=== PATIENT | male | born 1950 | race African-American/Black ===

== ENCOUNTER 2019-06-09 11:15 | Inpatient (IN) | payer MEDICARE, MEDICAID ==
[~2019-06-09] VITALS: Ht 177.8 cm; Wt 104.3 kg
[2019-06-09] MEDS ORDERED: ONDANSETRON HCL 4MG/2ML INJ IV STA (12:34)
[2019-06-09] MEDS ORDERED: SODIUM CHLORIDE 0.9% 1,000 ML IV ONE (12:34)
[2019-06-09] MEDS ORDERED: MORPHINE SULFATE 4 MG/ML CPJ (NOT FOR IM USE) IV STA (12:34)
[2019-06-09 13:39] LABS: BASOPHILS % 0.8 % (0.0-2.0); EOSINOPHILS % 0.2 % (0.0-5.0); HEMATOCRIT. 39.2 % (42.0-52.0); HEMOGLOBIN. 12.7 g/dL (14.0-18.0); LYMPHOCYTES % 20.6 % (20.0-50.0); MEAN CORPUSCULAR HEMOGLOBIN 27.5 pg (28.0-32.0); MEAN PLATELET VOLUME 8.2 fl (7.4-10.4); MONOCYTES % 12.4 % (2.0-8.0); PLATELET 146 x1000/uL (130-400); RED BLOOD CELL COUNT 4.62 mill/uL (4.7-6.1)
[2019-06-09 13:44] LABS: CHLORIDE 101 mEq/L (98-107)
[2019-06-09] MEDS ORDERED: ASPIRIN 325MG EC TABLET PO ONE (14:30)
[2019-06-09] MEDS ORDERED: POTASSIUM CHLORIDE 20MEQ TABLET SR PO ONE (14:30)
[2019-06-09] MEDS ORDERED: ENOXAPARIN 40MG/0.4ML SYR SUBCUT SCH (16:30)
[2019-06-09] MEDS ORDERED: MAGNESIUM/ALUMINUM HYDROXIDE/SIMETHICONE 30ML UDC PO PRN (16:30)
[2019-06-09] MEDS ORDERED: KETOROLAC 15MG/ML VIAL IV PRN (16:30)
[2019-06-09] MEDS ORDERED: DOCUSATE SODIUM 100MG CAPSULE PO PRN (16:30)
[2019-06-09] MEDS ORDERED: NITROGLYCERIN 0.4MG TABLET SL SL PRN (16:30)
[2019-06-09] MEDS ORDERED: GUAIFENESIN 200MG/10ML SUGAR FREE UDC PO PRN (16:30)
[2019-06-09] MEDS ORDERED: ONDANSETRON HCL 4MG/2ML INJ IV PRN (16:30)
[2019-06-09] MEDS ORDERED: IPRATROPIUM/ALBUTEROL 0.5-3(2.5)MG/3ML NEB NEB PRN (16:30)
[2019-06-09] MEDS ORDERED: ACETAMINOPHEN 325MG TABLET PO PRN (16:30)
[2019-06-09] MEDS ORDERED: NA PHOS,M-B/NA PHOS,DI-BA ENEMA 118ML PR PRN (16:30)
[2019-06-09] MEDS ORDERED: HALOPERIDOL LACTATE 5MG/ML VIAL IM PRN (16:30)
[2019-06-09] MEDS ORDERED: DEXTROSE 50% WATER 50ML SYRINGE IV PRN (16:30)
[2019-06-09] MEDS ORDERED: TRAMADOL 50MG TABLET PO PRN (16:30)
[2019-06-09] MEDS: BLOOD SUGAR DIAGNOSTIC STRIP TEST SCH ×2 (17:00→21:59)
[2019-06-09] MEDS ORDERED: LEVOFLOXACIN 500MG PREMIX 100 ML IV SCH (17:30)
[2019-06-09 17:31] LABS: CLARITY URINE CLEAR (CLEAR); COLOR URINE YELLOW (YELLOW); KETONES URINE TRACE (NEGATIVE); LEUKOCYTE ESTERASE URINE 2+ (NEGATIVE); NITRITE URINE NEGATIVE (NEGATIVE); OCCULT BLOOD URINE NEGATIVE (NEGATIVE); PH URINE 7.5 (4.5-8.0); PROTEIN URINE TRACE (NEGATIVE); SPECIFIC GRAVITY URINE 1.016 (1.005-1.030)
[2019-06-09 17:43] LABS: *AMPHETAMINES SCREEN URINE NEGATIVE (NEGATIVE); *BARBITURATES SCREEN URINE NEGATIVE (NEGATIVE); *BENZODIAZEPINES SCREEN URINE NEGATIVE (NEGATIVE)
[2019-06-09 17:44] LABS: *COCAINE SCREEN URINE NEGATIVE (NEGATIVE); CANNABINOID URINE SCREEN NEGATIVE (NEGATIVE); METHADONE URINE SCREEN NEGATIVE (NEGATIVE); OPIATES URINE SCREEN NEGATIVE (NEGATIVE); PHENCYCLIDINE URINE SCREEN NEGATIVE (NEGATIVE)
[2019-06-09] MEDS: INSULIN LISPRO 100 UNITS/ML SUBCUT SCH ×2 (18:05→21:00)
[2019-06-09 18:12] LABS: D-DIMER 3.98 mg/L FEU (<0.50); INR 1.1; PARTIAL THROMBOPLASTIN TIME 34.1 sec (23.4-31.0); PROTHROMBIN TIME 11.4 sec (9.6-11.0)
[2019-06-09] MEDS: ENOXAPARIN 30MG/0.3ML SYR SUBCUT SCH (18:52)
[2019-06-09 20:30] VITALS: BP_SYST 167; BP_DIAS 75; BP_DIAS 85
[2019-06-09] MEDS ORDERED: IOHEXOL-350 100 ML BOTTLE ONE (21:17)
[2019-06-09] MEDS: METHYLPREDNISOLONE SOD SUCC 125 MG/2 ML VIAL IV SCH (21:58)
[2019-06-09] MEDS: GUAIFENESIN/DM 600MG/30MG ER TAB 12HR PO SCH (21:59)
[2019-06-09] MEDS: METOPROLOL TARTRATE 25MG TABLET PO SCH (21:59)
[2019-06-09] MEDS: FAMOTIDINE 20MG TABLET PO SCH (22:02)
[2019-06-09] MEDS: LISINOPRIL 20MG TABLET PO SCH (22:02)
[2019-06-09 23:13] LABS: CREATINE KINASE 172 IU/L (39-308)
[2019-06-09 23:14] LABS: CREATINE KINASE MB FRACTION 3.9 ng/mL (0.5-3.6)
[2019-06-10] VITALS: BP 173/80
[2019-06-10] MEDS: CLONIDINE 0.1MG TABLET PO PRN ×2 (01:27→18:04)
[2019-06-10] MEDS: IPRATROPIUM/ALBUTEROL 0.5-3(2.5)MG/3ML NEB HHN SCH ×6 (01:57→20:58)
[2019-06-10 04:00] VITALS: BP 154/71
[2019-06-10] MEDS: METHYLPREDNISOLONE SOD SUCC 125 MG/2 ML VIAL IV SCH ×3 (05:15→22:14)
[2019-06-10] MEDS: ENOXAPARIN 30MG/0.3ML SYR SUBCUT SCH ×2 (05:16→18:04)
[2019-06-10] MEDS: BLOOD SUGAR DIAGNOSTIC STRIP TEST SCH ×4 (07:47→21:00)
[2019-06-10 08:00] VITALS: BP_SYST 120; BP_SYST 176; BP_DIAS 60; BP_DIAS 74
[2019-06-10] MEDS: INSULIN LISPRO 100 UNITS/ML SUBCUT SCH ×4 (08:10→22:26)
[2019-06-10 08:43] LABS: CREATINE KINASE 137 IU/L (39-308)
[2019-06-10 08:45] LABS: CREATINE KINASE MB FRACTION 3.5 ng/mL (0.5-3.6)
[2019-06-10] MEDS: METOPROLOL TARTRATE 25MG TABLET PO SCH ×2 (08:58→22:13)
[2019-06-10] MEDS: GUAIFENESIN/DM 600MG/30MG ER TAB 12HR PO SCH ×2 (08:58→22:13)
[2019-06-10] MEDS: FAMOTIDINE 20MG TABLET PO SCH ×2 (08:58→22:13)
[2019-06-10] MEDS: LISINOPRIL 20MG TABLET PO SCH ×2 (08:59→22:13)
[2019-06-10] MEDS: ASPIRIN 325MG EC TABLET PO SCH (08:59)
[2019-06-10] MEDS ORDERED: INFLUENZA VIRUS VACCINE(AFLURIA) 0.5ML SYR IM ONE (09:00)
[2019-06-10] MEDS ORDERED: PNEUMOCOCCAL 23-VAL P-SAC VAC 0.5 ML IM ONE (09:00)
[2019-06-10 12:00] VITALS: BP 170/80
[2019-06-10] MEDS ORDERED: LEVOFLOXACIN 500MG PREMIX 100 ML IV SCH (14:00)
[2019-06-10 16:00] VITALS: BP 188/82
[2019-06-11] VITALS: BP 174/93
[2019-06-11] MEDS: IPRATROPIUM/ALBUTEROL 0.5-3(2.5)MG/3ML NEB HHN SCH ×6 (00:26→21:08)
[2019-06-11] MEDS: CLONIDINE 0.1MG TABLET PO PRN ×2 (01:17→08:47)
[2019-06-11 04:00] VITALS: BP 155/91
[2019-06-11] MEDS: METHYLPREDNISOLONE SOD SUCC 125 MG/2 ML VIAL IV SCH ×3 (07:02→23:38)
[2019-06-11] MEDS: ENOXAPARIN 30MG/0.3ML SYR SUBCUT SCH ×2 (07:02→18:50)
[2019-06-11] MEDS: BLOOD SUGAR DIAGNOSTIC STRIP TEST SCH ×4 (07:13→20:36)
[2019-06-11] MEDS: INSULIN LISPRO 100 UNITS/ML SUBCUT SCH ×4 (08:10→20:32)
[2019-06-11] MEDS: ASPIRIN 325MG EC TABLET PO SCH (08:41)
[2019-06-11] MEDS: GUAIFENESIN/DM 600MG/30MG ER TAB 12HR PO SCH ×2 (08:41→20:36)
[2019-06-11] MEDS: FAMOTIDINE 20MG TABLET PO SCH ×2 (08:42→20:29)
[2019-06-11] MEDS: LISINOPRIL 20MG TABLET PO SCH ×2 (08:42→20:29)
[2019-06-11] MEDS: METOPROLOL TARTRATE 25MG TABLET PO SCH ×2 (08:43→20:30)
[2019-06-11] MEDS: LEVOFLOXACIN 500MG PREMIX 100 ML IV SCH (10:38)
[2019-06-11] MEDS: AMLODIPINE 10MG TABLET PO SCH (10:39)
[2019-06-11 13:08] LABS: CHLORIDE 103 mEq/L (98-107)
[2019-06-11] MEDS: HALOPERIDOL LACTATE 5MG/ML VIAL IM PRN (20:28)
[2019-06-12] MEDS: IPRATROPIUM/ALBUTEROL 0.5-3(2.5)MG/3ML NEB HHN SCH ×5 (01:39→15:44)
[2019-06-12] MEDS: HALOPERIDOL LACTATE 5MG/ML VIAL IM PRN (01:58)
[2019-06-12 04:00] VITALS: BP 174/98
[2019-06-12] MEDS: METHYLPREDNISOLONE SOD SUCC 125 MG/2 ML VIAL IV SCH ×2 (05:15→15:07)
[2019-06-12] MEDS: ENOXAPARIN 30MG/0.3ML SYR SUBCUT SCH (05:16)
[2019-06-12] MEDS: BLOOD SUGAR DIAGNOSTIC STRIP TEST SCH ×2 (07:40→12:40)
[2019-06-12] MEDS ORDERED: LISINOPRIL 20MG TABLET PO NR (09:30)
[2019-06-12] MEDS: ASPIRIN 325MG EC TABLET PO SCH (09:31)
[2019-06-12] MEDS: GUAIFENESIN/DM 600MG/30MG ER TAB 12HR PO SCH (09:31)
[2019-06-12] MEDS: AMLODIPINE 10MG TABLET PO SCH (09:32)
[2019-06-12] MEDS: CLONIDINE 0.1MG TABLET PO PRN (09:32)
[2019-06-12] MEDS: LISINOPRIL 20MG TABLET PO SCH (09:32)
[2019-06-12] MEDS: METOPROLOL TARTRATE 25MG TABLET PO SCH (09:32)
[2019-06-12] MEDS: FAMOTIDINE 20MG TABLET PO SCH (09:34)
[2019-06-12] MEDS: INSULIN LISPRO 100 UNITS/ML SUBCUT SCH ×2 (09:54→12:31)
[2019-06-12] MEDS: LEVOFLOXACIN 500MG PREMIX 100 ML IV SCH (10:31)
[2019-06-12 12:00] VITALS: BP 143/80
[2019-06-12 13:13] VITALS: BP 143/80
[2019-06-12 16:00] VITALS: BP 157/73
== END 2019-06-12 17:02 | DRG 689 ==
LOC: ER 11:55 → 7WST 15:09 → SUPCPDRO 16:16 → ENRESERV 20:07
PROVIDERS: ADMIT Internal Medicine; ATTEND Internal Medicine
DX: N39.0 Urinary tract infection, site not specified (principal); G92 Toxic encephalopathy; D64.9 Anemia, unspecified; E11.9 Type 2 diabetes mellitus without complications; B96.4 Proteus (mirabilis) (morganii) as the cause of diseases classified elsewhere; E87.6 Hypokalemia; F20.9 Schizophrenia, unspecified; I10 Essential (primary) hypertension; Z79.4 Long term (current) use of insulin; Z86.73 Personal history of transient ischemic attack (TIA), and cerebral infarction without residual deficits; Z79.899 Other long term (current) drug therapy
CPT/HCPCS: 36415; 70551; 71045; 71275; 73521; 73610; 73630; 80048; 80053; 80061; 80305; 80320; 81003; 82140; 82550; 82553; 82607; 82746; 82962; 83036; 83540; 83550; 83880; 84443; 84484; 85025; 85379; 87077; 87186; 93005; 93306; 93970; 94640; 99285; J1630; J1650; J1815; J1956; J2270; J2405; J2930; J7030; J7620; Q9967; G0480